=== PATIENT | female | born 1995 | race Hispanic/Latino ===

== ENCOUNTER → 2018-04-07 | Outpatient (CLI) | payer OTHER ==
--- NOTE | 2018-04-07 14:13 | Diagnostic Imaging Report ---
RADIOGRAPH(S) OF THE ABDOMEN AND PELVIS, 2 view(s) HISTORY: Heartburn, constipation COMPARISON: None available. FINDINGS: General paucity of bowel gas, but no visible bowel dilation. No definite urinary tract calcification. The bones are partially obscured by stool and overlying bowel gas. 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 IMPRESSION: 1. Nonobstructive bowel gas pattern. 2. No acute radiographic abnormality. Signed by: Dr. Fran Cameron D.O., M.M.M. on 04/07/2018 2:09 PM
== END ==
LOC: RAD 11:44
PROVIDERS: ATTEND Internal Medicine
DX: K59.00 Constipation, unspecified (principal)
CPT/HCPCS: 74018; 81025